=== PATIENT | female | born 1960 | race Caucasian/White ===

== ENCOUNTER → 2017-09-21 | Outpatient (CLI) | payer OTHER ==
[~2017-09-21] MED LIST: ALBU8.5H IH; ALBU8.5H12 IH; ALBUTEROL INHALER; AMOX-559 PO; ASCO-201 PO; ASCO500C9 PO; ASPI-1441 PO; AZIT500T47 PO; CARI250T10 PO; CELE-1 PO; CETI10CA8 PO; CHOL100058 PO; CIT20 PO; CITA-145 PO; CITA-156 PO; CITA10SO7 PO; CLO1 PO; CLON-303 PO; CLON-308 PO; DAR100 PO; DIP5L PO; DOXY-179 PO; EPIN0.3P15 IM; EST3 PO; FAM20 PO; FISH OIL 1,2001 CAP PO; FISH OIL1 CAP PO; FOLI0.4T56 PO; HYD2 PO; IBUP-1618 PO; LEVO50TA80 PO; LEVO50TA86 PO; LEVO750T25 PO; LEVO88TA45 PO; LIDO700A25 TP; LINA145C PO; MECL-111 PO; METH-318 PO; METH2TAB PO; METH36 PO; METH5TAB85 PO; METHY10 PO; MULT1TAB64 PO; MUPI1OIN ENA; PAPA100T PO; PHEN-578 PO; PRAS1TAB4 PO; PRAS25CA7 PO; PROGESTERONE; S-AD400T7 PO; SIMV5TAB60 PO; THY60 PO; THYROXIN; TOP25 PO; TRA50 PO; TRAM-420 PO; VITA1CAP55 PO; ZINC10LO9 PO; ZPACK; [UNRECOGNIZED DRUG - CODE] PO; [UNRECOGNIZED DRUG - CODE] PO; [UNRECOGNIZED DRUG - CODE] PO; [UNRECOGNIZED DRUG - CODE] PO; [UNRECOGNIZED DRUG - OTHER]; [UNRECOGNIZED DRUG - OTHER] PO
[2017-09-21 14:41] LABS: PLATELET COUNT, AUTOMATED 232 K/uL (150-450)
== END ==
LOC: LAB 14:25
PROVIDERS: ATTEND Emergency Medicine
DX: R53.81 Other malaise (principal)
CPT/HCPCS: 36415; 85025

== ENCOUNTER → 2017-10-18 | Outpatient (CLI) | payer OTHER ==
[2017-10-18 09:36] LABS: PLATELET COUNT, AUTOMATED 254 K/uL (150-450)
--- NOTE | 2017-10-18 10:32 | EKG ---
[place] [facility] [place] BRENT TOM : [id number] MR: [id number] V: [id number] EXAM DATE: ORDERING PHYSICIAN: BARBARA NYE TECHNOLOGIST: JOSEPH Test Reason : CHEST PAIN Blood Pressure : / mmHG Vent. Rate : 065 BPM Atrial Rate : 065 BPM P-R Int : 196 ms QRS Dur : 064 ms QT Int : 396 ms P-R-T Axes : 072 033 047 degrees QTc Int : 411 ms Normal sinus rhythm Normal ECG When compared with ECG of 29-SEP-2016 08:30, No significant change was found Referred By: BARBARA NYE Confirmed By:
== END ==
LOC: LAB 08:48
PROVIDERS: ATTEND Nurse Practitioner Family
DX: R07.2 Precordial pain (principal); R00.2 Palpitations
CPT/HCPCS: 36415; 71046; 82040; 82247; 82310; 82374; 82435; 82565; 82947; 84075; 84132; 84155; 84295; 84443; 84450; 84460; 84484; 84520; 85025; 93225

== ENCOUNTER → 2017-10-25 | Outpatient (CLI) | payer OTHER ==
[~2017-10-25] MED LIST changes: -CLON-303 PO; +CLON-304 PO; -CLON-308 PO; +CLON-335 PO
== END ==
LOC: LAB 08:55
PROVIDERS: ATTEND Emergency Medicine
DX: R10.9 Unspecified abdominal pain (principal)
CPT/HCPCS: 87177; 87338

== ENCOUNTER → 2017-11-04 | Outpatient (CLI) | payer OTHER ==
--- NOTE | 2017-11-05 15:45 | RADIOLOGY IMAGING REPORT ---
FACILITY: [facility] PATIENT NAME: Sherron Arenas : 1960 MR: [id number] V: [id number] EXAM DATE: ORDERING PHYSICIAN: LEATHA RAMIRES TECHNOLOGIST: [place] [facility] [place]ron A[place] : 1960 Visit/Account:[id number] Date of Sevice: 11/04/2017 EXAMINATION: Single Isotope SPECT Imaging with Exercise and Gated SPECT Imaging DATE OF EXAMINATION: November 04, 2017 DATE OF INTERPRETATION: November 05, 2017 REQUESTING PHYSICIAN: LEATHA RAMIRES INDICATION: The patient is a 57-year-old female evaluated for chest pain. PROCEDURE: After informed consent the patient received an intravenous injection of 11.3 mCi of Tc-9 9m sestamibi followed at the appropriate time interval by rest imaging. The patient then exercised a ccording to the standard Patrick protocol for 8 minutes and 5 seconds achieving 9 METS. Resting heart rate was 65 bpm with a peak heart rate of 153 bpm which is 92 % of maximal predicted heart rate for age. Blood pressure at rest was 103 / 63; blood pressure during exercise was 154 / 76. There was no chest pain during exercise. Exercise was discontinued because of fatigue. Baseline EKG demonstrate s sinus rhythm. There were no significant EKG changes of ischemia at peak exercise. Approximately o ne minute and 30 seconds prior to the termination of exercise, the patient received an intravenous in jection of 29.8 mCi of Tc-99m sestamibi followed by stress imaging. RAW DATA: Examination of the summed raw data revealed a good quality study. MYOCARDIAL PERFUSION: The tomographic images demonstrate normal rest and stress. No transient ischem ic dilation post stress. GATED IMAGES: The gated images demonstrate normal regional wall motion and thickening, LVEF 70% IMPRESSION: 1. Negative exercise treadmill test for angina or ECG changes of ischemia at a very good exercise le cornelia. 2. Normal myocardial perfusion scan. 3. Normal LV systolic function; LVEF 70%. Report Dictated By: Shane Campbell MD at 11/05/2017 3:36 PM Report E-Signed By: Shane Campbell MD at 11/05/2017 3:40 PM WSN:[id number]
--- NOTE | 2017-11-08 15:05 | RT STRESS TEST REPORT ---
FACILITY: [facility] [place] PATIENT NAME: BRENT TOM : [id number] MR: [id number] V: [id number] EXAM DATE: ORDERING PHYSICIAN: LEATHA RAMIRES TECHNOLOGIST: Jumana [employer] Time: 2017-11-04 09:25:29 Total Exercise Time: 00:08:05 Test Indications: chest pain Medications: see nuclear med sheet Protocol: MAXIMO 2 Max HR: 153 BPM 92% of Pred: 165 BPM Max BP: 154/076 mmHG Max Work Load: 10.1 METS Impression: No EKG changes or symptoms to suggest ischemia Confirmed by KIMANI RENTERIA ([id number]) on 11/08/2017 3:03:26 PM Referred By: Overread By: KIMANI RENTERIA
== END ==
LOC: RESP 01:30
PROVIDERS: ATTEND Emergency Medicine
DX: R07.9 Chest pain, unspecified (principal)
CPT/HCPCS: 78452; 93017; A9500

== ENCOUNTER → 2017-12-08 | Outpatient (CLI) | payer OTHER | LOC: LAB 09:36 | PROVIDERS: ATTEND Emergency Medicine | DX: E03.9 Hypothyroidism, unspecified (principal); E66.3 Overweight | CPT/HCPCS: 36415; 84439; 84443; 84481 ==

== ENCOUNTER → 2018-08-25 | Outpatient (CLI) | payer OTHER ==
[~2018-08-25] MED LIST changes: +AZEL137S NS; -CLON-304 PO; +CLON-333 PO; -SIMV5TAB60 PO; +SIMV5TAB69 PO; +TRAM-627 PO
--- NOTE | 2018-08-26 14:08 | RADIOLOGY IMAGING REPORT ---
FACILITY: [facility] - [place] PATIENT NAME: BRENT TOM : [id number] MR: [id number] V: [id number] EXAM DATE: [id number] ORDERING PHYSICIAN: LEATHA RAMIRES TECHNOLOGIST: Dionna Luevano PROCEDURE: BILATERAL DIGITAL SCREENING MAMMOGRAM WITH CAD ASSISTED INTERPRETATION & 3D TOMOSYNTHESIS REASON FOR STUDY: Screening FAMILY HISTORY OF BREAST CANCER: 2 cousins. There is a family history of ovarian cancer in a Paternal Grandmother BREAST PROCEDURES/TREATMENTS: None. COMPARISON: 12/31/15, 02/06/14, 11/10/11 VIEWS OBTAINED: Bilateral 2D & 3D full field CC & MLO projections. BREAST DENSITY: There are scattered areas of fibroglandular density throughout the breasts. MAMMOGRAM FINDINGS: There is a small ovoid dense nodule in the posterior third upper outer quadrant Left breast not appreciated on the prior studies. Left breast Ultrasound recommended for further evaluation. IMPRESSION: BIRADS 0: Incomplete, needs additional imaging evaluation. Left breast Ultrasound recommended as described. DIAGNOSTIC CATEGORY 0--INCOMPLETE: NEED ADDITIONAL IMAGING EVALUATION. RECOMMENDATIONS: ULTRASOUND: LEFT BREAST. Dictated by: Breanne Marquis M.D. on 08/25/2018 at 16:42 Transcribed by: FORTINO on 08/26/2018 at 13:25 Approved by: Breanne Marquis M.D. on 08/26/2018 at 14:06 [facility]
== END ==
LOC: MAMO 00:08
PROVIDERS: ATTEND Emergency Medicine
DX: R92.8 Other abnormal and inconclusive findings on diagnostic imaging of breast (principal)
CPT/HCPCS: 77063; 77067

== ENCOUNTER → 2018-10-06 | Outpatient (CLI) | payer OTHER ==
--- NOTE | 2018-10-07 08:21 | RADIOLOGY IMAGING REPORT ---
FACILITY: [facility] - [place] PATIENT NAME: BRENT TOM : [id number] MR: [id number] V: [id number] EXAM DATE: ORDERING PHYSICIAN: LEATHA RAMIRES TECHNOLOGIST: Luis Angel Shepherd RDMS, RD PROCEDURE:US LEFT BREAST COMPARISON:Prior mammogram dated 08/25/18 INDICATIONS:abnormal mammogram AREA SCANNED: The 12-3 o'clock position of the Left breast was imaged. FINDINGS: In the 2:30 position of the Left breast there is a 5.4 x 3.5 x 4.7mm fatty replaced lymph node which likely accounts for the recent mammographic findings. DIAGNOSTIC CATEGORY 2--BENIGN FINDING. RECOMMENDATIONS: ROUTINE MAMMOGRAM AND CLINICAL EVALUATION. IMPRESSION: BIRADS 2: Benign finding. There is a small fatty replaced lymph node in the 2:30 position of the Left breast which likely accounts for the recent mammographic findings. Dictated by: Breanne Marquis M.D. on 10/06/2018 at 15:49 Transcribed by: FORTINO on 10/07/2018 at 7:08 Approved by: Breanne Marquis M.D. on 10/07/2018 at 8:18 [facility]
== END ==
LOC: US 00:21
PROVIDERS: ATTEND Emergency Medicine
DX: R92.8 Other abnormal and inconclusive findings on diagnostic imaging of breast (principal)